=== PATIENT | male | born 2000 | race African-American/Black ===

== ENCOUNTER 2024-04-03 19:21 | Emergency (ER) | payer SELFPAY ==
[2024-04-03 19:24] VITALS: BP 142/80
--- NOTE | 2024-04-03 20:50 | ED.SKININJ ---
HPI-Injury
General
Chief Complaint: Bite
Source: patient
Exam Limitations: none
Time Seen by Provider: 04/03/24 19:30
Nursing documentation reviewed up to this point in time: agreed with
History of Present Illness-Injury
Is this injury a work related problem?: Yes
Is pt an associate of [facility]?: No
Initial Injury comments:
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 He is able to speak with the owners of the dog and the
dog is up-to-date with rabies vaccinations. Denies any numbness weakness to the area good range of motion. He is unsure when his last tetanus shot was.
Review of Systems
Review of Systems
Allergies reviewed?: Yes
All Other Systems: ROS reviewed and negative except as documented in HPI and ROS
Phy Exam
Physical Exam
Physical Exam:
GENERAL: Alert , in no apparent distress
EYE: pupils equal and reactive
NECK: Supple, no significant adenopathy.
ENT: o/p clr, mmm.
CARDIAC: Regular rate and rhythm .
LUNGS: Clear breath sounds bilaterally, no acute respiratory distress, no wheezes/rales/rhonchi
ABDOMEN: Soft, without focal tenderness, no r/g, no cvat
NEUROLOGICAL: Alert and oriented, no focal neuro deficits
SKIN: 1 cm laceration over the right wrist on the dorsal aspect appears to go to the subcutaneous depth but no obvious evidence of tendon involvement or bone involvement since warm and dry, skin intact.
MUSCULOSKELETAL: No edema, well perfused.
PSYCH: Normal and appropriate interaction.
Course
Orders/Labs/Results
Orders:
Orders
04/03/24 19:42
CR Wrist - Right Min 3 Views Urgent
Comment:
Reason For Exam: dog bite
04/03/24 20:41
Amoxicillin 875 mg/Clav 125 mg [Augmentin 875 mg/125 mg] 1 tablet PO NOW STA
Tetanus/Diphth/Acelpertussis [Adacel] 0.5 ml IM .ONCE ONE
Vital Signs
Initial and Last Documented VS:
Initial Vital Signs
Temp Pulse Resp BP Pulse Ox
98.3 F 83 20 142/80 98
04/03/24 19:24 04/03/24 19:24 04/03/24 19:24 04/03/24 19:24 04/03/24 19:24
Last Documented Vital Signs
Temp Pulse Resp BP Pulse Ox
98.3 F 83 20 142/80 98
04/03/24 19:24 04/03/24 19:24 04/03/24 19:24 04/03/24 19:24 04/03/24 19:24
MDM/Problems Addressed
MDM/Problems Addressed:
23-year-old male presenting to the emergency department today with concerns of a dog bite to his right hand. Present for 1 cm laceration from dog bite to the right dorsal wrist. He was started on Augmentin given updated tetanus shot x-ray without
signs of underlying injury otherwise this was left open to reduce risk of infection advised to keep the area clean covered but otherwise stable for discharge. Return precautions given.
*Critical Care Note
Total Time (30-74mins, 75-104mins- exclusive of procedures): Not Applicable
ED Attending Note
-
Portions of this chart may have been created with voice recognition software.� Occasional wrong word or��sound alike� substitutions may have occurred due to the inherent limitations of voice recognition software.
Discharge Plan
Departure
Patient Disposition: Home (Routine Discharge)
Date of Disposition: 04/03/24
Time of Disposition: 21:16
Patient with high blood pressure during this ER visit?: No
Condition: Good
Covid-19: Not Applicable
Discharge Problem:
Dog bite of right wrist
Instructions: Animal Bites (DC)
Prescriptions:
New
amoxicillin-pot clavulanate 875-125 mg tablet
1 tab PO BID 3 Days Qty: 6 0RF
Referrals:
Adrien Govea DO [Family Provider] -
Activity Restrictions/Additional Instructions:
You came to the emergency department today with concerns of a dog bite to your right wrist. This was cleaned and left to continue to drain. Please take Augmentin twice daily for the next 3 days and follow-up closely as an outpatient. Return to
the emergency department for any worsening, new or concerning symptoms.
Interventions
Interventions:
*Risk Screen - Suicide Last Done: 04/03/24 19:24
*General Assessment Last Done: 04/03/24 19:24
*Neglect/Abuse Screening Last Done: 04/03/24 19:24
Discharge Date and Time
Print Language: [id number]
[2024-04-03] MEDS: ADACEL 0.5 ML IM (21:13)
[2024-04-03] MEDS: AUGMENTIN 875 MG/125 MG 1 TABLET PO (21:13)
== END 2024-04-03 21:32 | disposition home or self-care (01) ==
LOC: EMR 19:21
PROVIDERS: EMERGENCY PHYSICIAN Emergency Medicine; FAMILY PHYSICIAN Family Medicine
DX: S61.511A Laceration without foreign body of right wrist, initial encounter (principal); W54.0XXA Bitten by dog, initial encounter; Y99.0 Civilian activity done for income or pay; Z23 Encounter for immunization
CPT/HCPCS: 99283; 90471; 73110; 90715